=== PATIENT | female | born 1980 | race Caucasian/White ===

== ENCOUNTER 2023-08-14 14:36 | Emergency (ER) | payer OTHER, SELFPAY ==
[2023-08-14 14:56] VITALS: BP 155/96
[2023-08-14 15:32] LABS: % Basophils 0.2 % (0-2); % Eosinophils 0.7 % (0-6); % Immature Granulocytes 0.2 % (0-0.5); % Lymphocytes 17.9 % (20.5-51.1); % Monocytes 6.4 % (1.7-9.3); % Neutrophils 74.6 % (42.2-75.2); Absolute Eosinophils 0.1 10^3/uL (0-0.7); Absolute Lymphocytes 1.7 10^3/uL (1.2-3.4); Absolute Monocytes 0.6 10^3/uL (0.1-0.6); Hematocrit 34.1 % (37.0-47.0); Hemoglobin 10.9 g/dL (12.0-16.0); Mean Corpuscular Hgb 25.5 pg (27.0-31.0); Mean Corpuscular Volume 79.7 fL (81.0-99.0); Mean Platelet Volume 10.8 fL (7.4-10.4); Nucleated Red Blood Cells % 0 %; Platelet Count 335 10^3/uL (130-400); Red Blood Cell Count 4.28 10^6/uL (4.20-5.40); White Blood Cell Count 9.4 10^3/uL (4.8-10.8)
[2023-08-14 15:47] LABS: ALT (SGPT) 71 U/L (0-35); AST (SGOT) 75 U/L (14-36); Albumin 4.4 g/dl (3.5-5.0); Alkaline Phosphatase 390 U/L (38-126); Blood Urea Nitrogen 14 mg/dl (7-17); Calcium 9.1 mg/dl (8.4-10.2); Carbon Dioxide 21 mmol/L (22-30); Chloride 105 mmol/L (98-107); Glucose 106 mg/dl (70-99); Lipase 51 U/L (23-300); Potassium 4.1 mmol/L (3.5-5.1); Sodium 134 mmol/L (135-145); Total Protein 8.3 g/dl (6.3-8.2); eGFR > 60.00
[2023-08-14 17:17] VITALS: BMI 37.2
--- NOTE | 2023-08-14 17:18 | ED.GENMED ---
History of Present Illness
General
Chief Complaint: Abdominal Pain
Source: patient
Exam Limitations: none
Time Seen by Provider: 08/14/23 16:54
Travel History
Have you had any contact with someone who has COVID-19?: No
Do you have any symptoms of coronavirus? Fever > 100 degrees, chills, cough, shortness of breath, sore throat, loss of taste or smell, muscle aches, or headache?: No
History of Present Illness
History of Present Illness:
42-year-old female presents with progressively worsening mid abdominal pain starting 2 days ago. There is nausea without vomiting. No fever. Pain does not radiate to the back pain is made worse with certain motions. No associated urinary
symptoms. No prior abdominal surgical history. She denies chest pain or shortness of breath. No other complaints at this time
Phy Exam
Physical Exam
Physical Exam:
General: Well-appearing female no acute respiratory distress
HEENT normocephalic atraumatic
Heart: Regular rate and rhythm no murmurs
Lungs: Clear to auscultation bilaterally no wheezing
Abdomen: Soft tender to the right lower quadrant mild rebound tenderness no guarding no referred tenderness. No costovertebral angle tenderness negative Leonard
Extremities: No cyanosis or edema
Skin: Warm no rash or lesions
Course
Orders/Labs/Results
Orders:
Orders
08/14/23 15:07
Complete Blood Count/With Diff Urgent
Comprehensive Metabolic Panel Urgent
Lipase Urgent
08/14/23 17:04
CT Abd/pelvis W Iv Cont Urgent
Comment:
Reason For Exam: rlq pain
Ketorolac [Toradol] 15 mg IV NOW STA
Ondansetron Injectable [Zofran] 4 mg IV NOW STA
08/14/23 17:15
Add On- LAB Urgent
Tests Added?: serum hcg
08/14/23 19:43
Test Result ONCE
08/14/23 19:48
HCG, Urine Qualitative Screen Urgent
Date Specimen was Collected: 08/14/23
Time Specimen was Collected: 19:43
Abnormal Lab Results
08/14/23
15:07
Hgb 10.9 L g/dL
(12.0-16.0)
Hct 34.1 L %
(37.0-47.0)
MCV 79.7 L fL
(81.0-99.0)
MCH 25.5 L pg
(27.0-31.0)
MCHC 32.0 L g/dL
(33.0-37.0)
RDW 16.0 H %
(11.5-14.5)
MPV 10.8 H fL
(7.4-10.4)
Absolute Neuts (auto) 7.0 H 10^3/uL
(1.4-6.5)
Lymphocytes % 17.9 L %
(20.5-51.1)
Sodium 134 L mmol/L
(135-145)
Carbon Dioxide 21 L mmol/L
(22-30)
Glucose 106 H mg/dl
(70-99)
AST 75 H U/L
(14-36)
ALT 71 H U/L
(0-35)
Alkaline Phosphatase 390 H U/L
(38-126)
Total Protein 8.3 H g/dl
(6.3-8.2)
08/14/23 15:07
08/14/23 15:07
Vital Signs
Initial and Last Documented VS:
Initial Vital Signs
Temp Pulse Resp BP Pulse Ox
98.4 F 105 16 155/96 98
08/14/23 14:56 08/14/23 14:56 08/14/23 14:56 08/14/23 14:56 08/14/23 14:56
Last Documented Vital Signs
Temp Pulse Resp BP Pulse Ox
98.4 F 77 11 110/65 99
08/14/23 14:56 08/14/23 19:15 08/14/23 19:15 08/14/23 19:00 08/14/23 19:15
MDM/Problems Addressed
Differential Diagnosis Includes:
Right and mid abdominal pain. Differential could include constipation versus appendicitis. Consider ovarian pathology. Patient does not describe sudden onset pain and pain is higher than I would expect for ovarian pathology. CT was ordered.
Upon review of labs there is slight elevation of the transaminases however had this resolved in the past. Clinically there is no tenderness to the right upper quadrant.
*Critical Care Note
Total Time (30-74mins, 75-104mins- exclusive of procedures): Not Applicable
Update Note
Update Note:
CT shows normal appendix and gallbladder. Lipase is normal. There is a 1.4 cm simple cyst on the right ovary. Unclear whether this is a source of the patient's pain. Recommended ongoing use of Tylenol for pain continued omeprazole and follow-up
with family doctor and/or GI. Zofran was prescribed for nausea
ED Attending Note
-
Portions of this chart may have been created with voice recognition software.� Occasional wrong word or��sound alike� substitutions may have occurred due to the inherent limitations of voice recognition software.
Discharge Plan
Departure
Patient Disposition: Home (Routine Discharge)
Date of Disposition: 08/14/23
Time of Disposition: 21:10
Patient with high blood pressure during this ER visit?: No
Discharge Problem:
Abdominal pain
Instructions: Abdominal Pain
Prescriptions:
New
ondansetron 4 mg tablet,disintegrating
4 mg PO Q8H PRN (Reason: nausea and vomiting) Qty: 10 0RF
Referrals:
Sen Turner MD [Family Provider] -
Activity Restrictions/Additional Instructions:
Drink plenty clear liquids. Use Tylenol for pain. Use Zofran if needed for nausea. Return if worse otherwise follow-up with family doctor and/or GI team
Interventions
Interventions:
*Risk Screen - Suicide Last Done: 08/14/23 17:17
*General Assessment Last Done: 08/14/23 17:17
*Neglect/Abuse Screening Last Done: 08/14/23 17:17
ED- Fall Risk Assessment Last Done: 08/14/23 17:17
*ED COVID-19 Vaccine History Last Done: 08/14/23 17:17
DD-Amcvof-Limitkrzos Assessment Last Done: 08/14/23 17:17
[2023-08-14] MEDS: ZOFRAN 4 MG IV (17:25)
[2023-08-14] MEDS: TORADOL 15 MG IV (17:25)
[2023-08-14 19:00] VITALS: BP 110/65
[2023-08-14 20:06] LABS: HCG, Urine Qualitative Screen Negative
== END 2023-08-14 21:21 | disposition home or self-care (01) ==
LOC: EMR 14:36
PROVIDERS: Physician Assistant; EMERGENCY PHYSICIAN Emergency Medicine; FAMILY PHYSICIAN Internal Medicine
DX: R10.9 Unspecified abdominal pain (principal); R11.0 Nausea; N83.291 Other ovarian cyst, right side
CPT/HCPCS: 99285; 96375; 96374; 74177; 80053; 81025; 83690; 85025; Q9967